=== PATIENT | male | born 1960 | race Hispanic/Latino ===

== ENCOUNTER 2017-05-04 05:52 | Day surgery (SDC) | payer OTHER ==
[2017-05-04 06:53] VITALS: BMI 30.2
[2017-05-04] MEDS ORDERED: Propofol 10 mg/ml Inj (20 ML) ONE (07:55)
[2017-05-04] MEDS ORDERED: Lidocaine Hydrochloride 5 ML INJ ONE (07:56)
[2017-05-04] MEDS ORDERED: Lactated Ringer's 500 ML IV SCH (08:15)
[2017-05-04 08:35] VITALS: TEMP 97.3
[2017-05-04 08:53] VITALS: PULSE 50
[2017-05-04 09:25] VITALS: BP 147/87; RESP 18; O2SAT 96
== END 2017-05-04 09:20 | disposition home or self-care (01) ==
LOC: C.ENDO 05:52
PROVIDERS: ATTEND Internal Medicine
DX: D12.3 Benign neoplasm of transverse colon (principal); K62.1 Rectal polyp; K57.90 Diverticulosis of intestine, part unspecified, without perforation or abscess without bleeding; K64.8 Other hemorrhoids
CPT/HCPCS: 45385; 88305; J2704; J3010; J7120

== ENCOUNTER 2018-07-21 15:35 | Inpatient (IN) | payer MEDICAID, OTHER ==
[2018-07-21 15:35] VITALS: BMI 30.2
[2018-07-21 19:33] LABS: BASO # 0.1 K/uL (0.0-0.2); BASO % 0.7 % (0.0-2.0); EOS # 0.3 K/uL (0.0-0.7); EOS % 3.4 % (0.0-4.0); HEMOGLOBIN 14.9 g/dL (12.0-18.0); LYMPH # 2.3 K/uL (1.0-4.3); LYMPH % 22.4 % (20.0-40.0); MEAN CORPUSCULAR HGB CONC 33.7 g/dL (33.0-37.0); MEAN PLATELET VOLUME 7.9 fL (7.2-11.7); MONO # 0.5 K/uL (0.0-0.8); MONO % 5.3 % (0.0-10.0); NEUT % 68.2 % (50.0-75.0); RBC 5.31 Mil/uL (4.40-5.90); RED CELL DISTRIBUTION WIDTH 13.3 % (11.5-14.5); WHITE BLOOD COUNT 10.3 K/uL (4.8-10.8)
[2018-07-21 19:49] LABS: ALB/GLOB RATIO 1.3 (1.0-2.1); ALBUMIN 4.7 g/dL (3.5-5.0); ALT/SGPT 28 U/L (21-72); AST/SGOT 37 U/L (17-59); BLOOD UREA NITROGEN 21 mg/dL (9-20); CALCIUM 9.6 mg/dl (8.6-10.4); GFR NON-AFRICAN AMERICAN > 60
[2018-07-21 19:50] LABS: BARBITURATES, UR NEGATIVE (NEGATIVE); BENZODIAZEPINES, UR NEGATIVE (NEGATIVE); PHENCYCLIDINE, UR NEGATIVE (NEGATIVE)
[2018-07-21 19:57] LABS: SQUAMOUS EPITHIAL < 1 /hpf (0-5); URINE BILIRUBIN NEGATIVE (NEGATIVE); URINE BLOOD 1+ (NEGATIVE); URINE CLARITY Clear (Clear); URINE COLOR Yellow (YELLOW); URINE GLUCOSE (UA) NORMAL (Normal); URINE LEUKOCYTE ESTERASE NEG Leu/uL (Negative); URINE PROTEIN NEGATIVE (NEGATIVE); URINE UROBILINOGEN NORMAL mg/dL (0.2-1.0)
[2018-07-21 20:06] LABS: OPIATES, UR POSITIVE (NEGATIVE)
--- NOTE | 2018-07-21 20:08 | C.PDOC ---
History Of Present Illness 58 y/o male comes in requesting heroin detox. States his last use was 3pm today via skin pop. Patient had detox from the past, but after his son , patient started using again. Patient does not have any other medical issues. Time Seen by Provider: 07/21/18 18:48 Chief Complaint (Nursing): Substance Abuse History Per: Patient History/Exam Limitations: no limitations Onset/Duration Of Symptoms: Days Current Symptoms Are (Timing): Still Present Past Medical History Reviewed: Historical Data, Nursing Documentation, Vital Signs Vital Signs: Last Vital Signs Temp 97.9 F 07/21/18 15:54 Pulse 108 H 07/21/18 15:54 Resp 18 07/21/18 15:54 BP 145/100 H 07/21/18 15:54 Pulse Ox 95 07/21/18 15:54 - Medical History PMH: Depression, Gastritis, HTN, Hypercholesterolemia Denies: Diabetes, Hepatitis, HIV, Chronic Kidney Disease, Seizures, Sexually Transmitted Disease Surgical History: Tonsillectomy - [facility] DRUG DETOXIFICATION (04/10/15) Family History: States: No Known Family Hx - Social History Hx Tobacco Use: No Hx Alcohol Use: No Hx Substance Use: Yes - Immunization History Hx Tetanus Toxoid Vaccination: Yes Hx Influenza Vaccination: No Hx Pneumococcal Vaccination: No Review Of Systems Constitutional: Negative for: Fever Cardiovascular: Negative for: Chest Pain Respiratory: Negative for: Shortness of Breath Gastrointestinal: Negative for: Vomiting, Diarrhea Psych: Positive for: Other (Heroin use) Physical Exam - Physical Exam Appears: Non-toxic, No Acute Distress Skin: Warm, Dry Head: Atraumatic, Normacephalic Eye(s): bilateral: Normal Inspection, PERRL, EOMI Oral Mucosa: Moist Neck: Supple Chest: Symmetrical Cardiovascular: Rhythm Regular, No Murmur Respiratory: Normal Breath Sounds, No Rales, No Rhonchi, No Wheezing Gastrointestinal/Abdominal: Soft, No Tenderness Extremity: Bilateral: Atraumatic, Normal Color And Temperature, Normal ROM Neurological/Psych: Oriented x3, Normal Speech ED Course And Treatment - Laboratory Results Result Diagrams: 07/21/18 19:25 07/21/18 19:25 Lab Interpretation: No Acute Changes O2 Sat by Pulse Oximetry: 95 (RA) Pulse Ox Interpretation: Normal Progress Note: Patient is medically cleared for detox admission. Medical Decision Making Medical Decision Making: Plan: --Bloodwork --UA Disposition - Disposition Disposition: HOSPITALIZED Disposition Time: 20:24 Condition: STABLE - POA Present On Arrival: None - Clinical Impression Clinical Impression: Opioid use disorder, severe, dependence - Rodgeribe Statement The provider has reviewed the documentation as recorded by the Robbin Bolanos Provider Attestation: All medical record entries made by the Robbin were at my direction and personally dictated by me. I have reviewed the chart and agree that the record accurately reflects my personal performance of the history, physical exam, medical decision making, and the department course for this patient. I have also personally directed, reviewed, and agree with the discharge instructions and disposition.
--- NOTE | 2018-07-21 22:22 | PCM.BM ---
<Dayana Dalton - Last Filed: 07/21/18 22:20> Treatment Plan Problems - Problems identified on initial assessmt Denial Date Initiated: 07/21/18 Time Initiated: 22:20 Assessment reference: NA Status: Active Defensive Coping Date Initiated: 07/21/18 Time Initiated: 22:21 Assessment reference: NA Status: Active Low Motivation to change Date Initiated: 07/21/18 Time Initiated: 22:21 Assessment reference: NA Status: Active Treatment assets and liabiliti Patient Assests: cooperative, ADL independent, negotiates basic needs, cognitively intact Patient Liabilities: substance abuse (Heroin,cocaine) - Milieu Protocol Maintain good personal hygiene: daily Encourage regular showers, daily Remind patient to perform daily oral care, daily Assist patient to perform ADL's Conduct patient checks and document Observation sheet: Q15 minutes Maintain personal safety: every shift Educate patient to report safety concerns to staff, every shift Monitor environment for contraband/sharps Medication safety: Monitor for expected outcome, potential side effects: every shift, Assess barriers to learning: every shift, Assess readiness for medication education: every shift <Jj Mosley - Last Filed: 07/23/18 12:56> - Diagnosis (1) Opioid use disorder, severe, dependence Status: Acute Interventions: 07/23/18 12:56 * Assess 7x/week regarding severity of withdrawal * Educate regarding risks, benefits, side effects and alternatives of medications * Use Motivational Interviewing for abstinence * Use CBT for relapse prevention * Medication management for withdrawal symptoms * Encourage medication assisted treatment (2) Cocaine use disorder, severe, dependence Status: Acute Interventions: 07/23/18 12:56 * Assess 7x/week regarding severity of withdrawal * Educate regarding risks, benefits, side effects and alternatives of medications * Use Motivational Interviewing for abstinence * Use CBT for relapse prevention * Medication management for withdrawal symptoms * Encourage medication assisted treatment
[2018-07-22] MEDS ORDERED: Aluminum Hydroxide/Magnesium Hydroxide Susp (30 mL) PO PRN (13:48)
[2018-07-22 17:17] VITALS: TEMP 97.8
[2018-07-22 20:05] VITALS: BP 124/76; PULSE 75; RESP 19; O2SAT 97
--- NOTE | 2018-07-22 21:18 | PCM.PSYCH ---
Initial Psychiatric Evaluation - Initial Psychiatric Evaluation Type of Admission: Voluntary Legal Status: Capacity Chief Complaint (in patient's own words): I need help for my heroin use. History of Present Illness and Precipitating Events: Patient is a 58 years old, single, employed, male with no previous psychiatric history was admitted due to withdrawing from heroin and cocaine. Opioids: Patient started using heroin at 15 years of age, increased gradually up to 2 bundles of heroin daily. He was using by skin popping in his deltoid area bilaterally. Patient has history of 5 years of no use in his 90s later he relapsed. He again has and other clean. For about 1 year until 3 months ago when [facility] was in [facility], was getting 230 mg of methadone. Patient stopped attending methadone program for personal reasons and relapsed again 3 months ago. He has history of 4 previous detox 3 at [facility] and one at [facility]. Patient has history of one previous rehabilitation at [facility]. Cocaine: Patient also has history of cocaine abuse, unspecified amount. Patient was guarded about further details except that he last used yesterday. Patient denied use of cannabis or alcohol. Denied smoking cigarettes. Patient has history of left leg surgery. Patient also has history of 4 incarceration multiple times for reasons including CDS charges. Currently he is on probation. Patient was born in [place] and has GED. He is working in construction. Patient is single. Lives alone. His height is 5 feet 9 inches and weight is 190 pounds. Current Medications: Active Medications Generic Name Dose Route Start Last Admin Trade Name Freq PRN Reason Stop Dose Admin Al Hydrox/Mg Hydrox/Simethicone 30 ml 07/22/18 13:48 Maalox 30 Ml PO TID PRN Indigestion / Heartburn Clonidine HCl 0.1 mg 07/21/18 22:42 07/22/18 21:10 Catapres PO 0.1 mg Q6 PRN Administration opiates withdrawal cows=5 Dicyclomine HCl 10 mg 07/21/18 22:39 Bentyl PO Q6 PRN Muscle spasm Gabapentin 400 mg 07/22/18 14:00 07/22/18 17:26 Neurontin PO 400 mg TID MEE Administration Hydroxyzine HCl 25 mg 07/21/18 22:37 07/22/18 21:10 Atarax PO 25 mg Q6 PRN Administration Anxiety Ibuprofen 400 mg 07/21/18 22:38 Motrin Tab PO Q6 PRN Pain, moderate (4-7) Loperamide HCl 2 mg 07/22/18 13:48 Imodium PO Q8 PRN Diarrhea Methadone HCl 25 mg 07/23/18 10:00 Methadone PO 07/28/18 09:59 Q24H MEE Taper Ondansetron HCl 4 mg 07/22/18 13:48 Zofran Tab PO Q8 PRN Nausea/Vomiting Trazodone HCl 50 mg 07/21/18 22:35 07/22/18 21:10 Desyrel PO 50 mg HS PRN Administration Insomnia Past Psychiatric History - Past Psychiatric History Previous Treatment History: Inpatient At [facility] hospital: [facility] History of Abuse: None reported History of ETOH/Drug Use: See HPI History of Family Illness: Patient reported 2 of his brothers overdose on drugs and . Also his son overdosed on heroin and . Pertinent Medical Hx (Current Medical&Sleep Prob, Allergies): Allergies Allergy/AdvReac Type Severity Reaction Status Date / Time No Known Allergies Allergy Verified 07/21/18 15:59 No Known Home Med 07/21/18 Hypertension Review of Systems - Psychiatric Psychiatric: As Per HPI, Anhedonia, Anxiety Mental Status Examination - Personal Presentation Personal Presentation: Looks stated age - Affect Affect: Other (Appropriate) - Motor Activity Motor Activity: Calm - Reliability in Providing Information Reliability in Providing Information: Fair - Speech Speech: Organized - Mood Mood: Anxious - Formal Thought Process Formal Thought Process: No Impairment - Hallucinations/Delusions Hallucinations: Other (None reported) Delusions: Other - Obsessions/Compulsions Obsessions: None Compulsions: None - Cognitive Functions Orientation: Person, Place, Situation, Time Sensorium: Alert Attention/Concentration: Attentive Abstract Thinking: [place] Estimate of Intelligence: Average Judgement: Intact, as evidence by: Insight regarding need for hospitalization Memory: Recent intact, as evidence by: Ability to recall events of the day, Remote intact, as evidenced by: Ability to recall historical events - Risk Risk: Withdrawal, Diminished functioning - Strength & Assets Inventory Strength & Assets Inventory: Employment history, Cooperative - Limitations Limitations: Living alone DSM 5 DX - DSM 5 DSM 5 Diagnosis: Opioid withdrawal Opioid use disorder severe Cocaine use disorder severe - Recommended/Plan of Treatment Treatment Recommendations and Plan of Treatment: Patient education. Supportive therapy. CBT for relapse prevention. DE for abstinence. Methadone taper for opiate withdrawal symptoms. Next and other when necessary medications. Patient wants to go to methadone maintenance program again for follow-up care after discharge from the hospital. Projected ELOS: 4-5 days - Smoking Cessation Smoking Cessation Initiated: No Reason for not providing: Patient doesn't smoke cigarettes
== END 2018-07-23 05:00 | disposition left against medical advice (07) | DRG 743 ==
LOC: C.ER 15:35 → C.7D 20:25
PROVIDERS: ADMIT Psychiatry & Neurology Psychiatry; ATTEND Psychiatry & Neurology Psychiatry
DX: F11.23 Opioid dependence with withdrawal (principal); F14.20 Cocaine dependence, uncomplicated; I10 Essential (primary) hypertension; E78.00 Pure hypercholesterolemia, unspecified